=== PATIENT | male | born 1995 | race Two or more races ===

== ENCOUNTER 2023-08-21 18:38 | Emergency (ER) | payer OTHER ==
[~2023-08-21] VITALS: Ht 177.8 cm; Wt 110.2 kg
[2023-08-21] MEDS ORDERED: KETOROLAC TROMETHAMINE 30 MG VIAL IM STA (20:05)
== END 2023-08-21 20:34 | disposition home or self-care (01) ==
LOC: ER 18:39
DX: R51.9 Headache, unspecified (principal)